=== PATIENT | male | born 1955 | race American Indian/Alaskan Native ===

== ENCOUNTER 2019-02-14 11:16 | Emergency (ER) | payer OTHER ==
--- NOTE | 2019-02-14 11:53 | Emergency Department Report ---
ED CPR HPI - General Chief Complaint: Cardiac Arrest/CPR Stated Complaint: CARDIAC ARREST Time Seen by Provider: 02/14/19 11:48 Source: EMS Mode of arrival: Stretcher Limitations: Other - History of Present Illness Initial Comments: This is a 63 year old incarcerated man who was less seen at approximately 8:30 in his cell. He was discovered hours later without signs of life. CPR was initiated. Paramedics were summoned. They found the patient to be pulseless and apneic and asystolic. They stated he was cool. Alf staff had already given a milligram of epinephrine. Medics stated that although there were no signs of life they felt obligated to continue CPR and transport. 3 or 4 additional milligrams of epinephrine were given and route. The patient remained pulseless apneic and asystolic throughout transport with continued CPR. Medics additionally placed a Quintin Air device to assist with ventilation. They did state that there was some rigidity of the jaw upon placement. MD Complaint: found unresponsive -: hour(s) Place: other (detention) Initial Findings in the Field: systole (asystole) Treatments Prior to Arrival: BMV, other airway device, chest compressions, epinephrine mgs # (I think 4 en route) - Related Data Allergies Allergy/AdvReac Type Severity Reaction Status Date / Time Unable to Assess Allergy Unverified 02/14/19 11:27 ED Review of Systems ROS: Stated complaint: CARDIAC ARREST Other details as noted in HPI Comment: Unobtainable due to pts medical conditions ED Past Medical Hx - Past Medical History Previous Medical History?: Yes Hx Hypertension: Yes Additional medical history: GERD, CHRONIC PAIN CHRONIC BPH - Social History Other Social History: Incarcerated for unknown duration. ED Physical Exam - General Limitations: Other General appearance: other - Head Head exam: Present: atraumatic - Eye Eye exam: Absent: periorbital swelling Pupils: Present: other (fixed and dilated) - ENT ENT exam: Present: other (the Quintin Air device is in place. There is blood noted in the oropharynx.) - Neck Neck exam: Present: normal inspection - Respiratory Respiratory exam: Present: decreased breath sounds - Cardiovascular Cardiovascular Exam: Present: other (no heart sounds) - GI/Abdominal GI/Abdominal exam: Present: distended (very distended abdomen) - Extremities Exam Extremities exam: Present: normal inspection - Back Exam Back exam: Present: other (deferred) - Neurological Exam Neurological exam: Present: other (GCS is 3) - Psychiatric Psychiatric exam: Present: other (not applicable) - Skin Skin exam: Present: cyanosis, other (cool but not cold) ED Course - Reevaluation(s) Reevaluation #1: Asystole was documented on arrival. There were no signs of life. Further resuscitative effort was futile. The patient was pronounced DOA. 02/14/19 11:55 Critical care attestation.: If time is entered above; I have spent that time in minutes in the direct care of this critically ill patient, excluding procedure time. ED Disposition Clinical Impression: Cardiac arrest Disposition: DC-20 Is pt being admited?: No Does the pt Need Aspirin: No Condition: Stable Time of Disposition: 11:56
[2019-02-14] MEDS ORDERED: EPINEPHrine 1:10,000 1 MG/10 ML SYRINGE ONE (20:28)
== END 2019-02-14 13:30 ==
LOC: EEVIPCON 11:16 → ED 11:16
DX: I46.9 Cardiac arrest, cause unspecified (principal); I10 Essential (primary) hypertension; K21.9 Gastro-esophageal reflux disease without esophagitis
CPT/HCPCS: 99285; J0171